=== PATIENT | female | born 1930 | race Caucasian/White ===

== ENCOUNTER 2016-07-19 10:13 | Emergency (ER) | payer MEDICARE ==
[~2016-07-19] VITALS: Ht 160 cm; Wt 66.3 kg
[~2016-07-19 10:13] MED LIST: ASPI325T PO; CIPR-9 PO; DILT120T PO; MULT-6 PO
[2016-07-19 10:30] VITALS: BP 175/90; PULSE 87; RESP 16; TEMP 98.8; O2SAT 98
--- NOTE | 2016-07-19 10:37 | PD ---
HPI Chief Complaint: palpitations Time Seen by Provider: 10:21 Travel History International Travel<30 days: No Contact w/Intl Traveler<30days: No Traveled to known affect area: No History of Present Illness HPI The patient was seen and examined in the presence of the nurse. This patient complains of palpitations. She has a sense that her heart is beating hard and sometimes skipping beats. She has no chest pain or discomfort. Duration is one day. She's been taking Sudafed for sinus congestion for 2 days. Symptoms severity is mild to moderate. No alleviating factors. PFSH Past Medical History Cancer: No Cardiovascular Problems: No Diabetes: No Diminished Hearing: No Endocrine: No Gastrointestinal Disorders: Yes (HAS TO BE GLUTEN FREE) Genitourinary: Yes (PROLAPSE BLADDER) Hepatitis: No Hiatal Hernia: No Hypertension: Yes Immune Disorder: No Musculoskeletal: Yes (ARTHRITIS) Neurologic: No Psychiatric: No Reproductive: Yes (PROLAPSE BLADDER) Respiratory: No Immunizations Current: Yes Thyroid Disease: No Menopausal: Yes Past Surgical History Hysterectomy: Yes (partial) Joint Replacement: Yes (BILATERAL HIPS) Oral Surgery: Yes (BROKEN NOSE REPAIR) Other Surgery: Yes Social History Alcohol Use: No Tobacco Use: No Substance Use: No Allergies-Medications (Allergen,Severity, Reaction): Coded Allergies: Lisinopril (Verified Allergy, Severe, Edema , Hives , 07/19/16) ANGIOEDEMA Hives - all over Gluten (Verified Allergy, Mild, Diarrhea, 07/19/16) INTERMEDIATE REACTION Penicillin (Verified Allergy, Mild, Hives, 07/19/16) Hives all over body Losartan (Verified Adverse Reaction, Intermediate, Joint Pain, 07/19/16) Reported Meds & Prescriptions Reported Meds & Active Scripts Active Diltiazem (Diltiazem HCl) 120 Mg Tab 120 Mg PO DIRECTED 1 tab po on Mon, Wed, Fri. Review of Systems General / Constitutional: No: Fever Eyes: No: Visual changes HENT: No: Headaches Cardiovascular: Positive: Palpitations, No: Chest Pain or Discomfort Respiratory: No: Shortness of Breath Gastrointestinal: No: Abdominal Pain Genitourinary: No: Dysuria Musculoskeletal: No: Pain Skin: No Rash Neurologic: No: Weakness Psychiatric: No: Depression Endocrine: No: Polydipsia Hematologic/Lymphatic: No: Easy Bruising Physical Exam Narrative GENERAL: Well-nourished, well-developed patient in no apparent distress. SKIN: Focused skin assessment reveals no rash and nodules. Skin is Warm and dry. HEAD: Atraumatic. Normocephalic. EYES: Pupils equal and round. No scleral icterus. No injection or drainage. ENT: No nasal bleeding or discharge. Mucous membranes pink and moist. NECK: Trachea midline. No JVD. CARDIOVASCULAR: Regular rate and rhythm. No murmur appreciated. Occasional ectopic beat noted, they are not frequent RESPIRATORY: No accessory muscle use. Clear to auscultation. Breath sounds equal bilaterally. GASTROINTESTINAL: Abdomen soft, non-tender, nondistended. Hepatic and splenic margins not palpable. MUSCULOSKELETAL: No obvious deformities. No clubbing. No cyanosis. No edema. NEUROLOGICAL: Awake and alert. No obvious cranial nerve deficits. Motor grossly within normal limits. Normal speech. PSYCHIATRIC: Appropriate mood and affect; insight and judgment normal. Data Data Last Documented VS Vital Signs Date Time Temp Pulse Resp B/P Pulse Ox O2 Delivery O2 Flow Rate FiO2 07/19/16 10:30 98.8 87 16 175/90 98 Orders Iv Access Insert/Monitor (07/19/16 10:26) Complete Blood Count With Diff (07/19/16 10:26) Basic Metabolic Panel (Bmp) (07/19/16 10:26) Electrocardiogram (07/19/16 ) Refrigeration Manager / Telemetry [email or web address] (07/19/16 10:26) Labs Laboratory Tests Test 07/19/16 10:43 White Blood Count 6.5 TH/MM3 Red Blood Count 4.24 MIL/MM3 Hemoglobin 12.4 GM/DL Hematocrit 37.1 % Mean Corpuscular Volume 87.5 FL Mean Corpuscular Hemoglobin 29.3 PG Mean Corpuscular Hemoglobin 33.5 % Concent Red Cell Distribution Width 13.1 % Platelet Count 164 TH/MM3 Mean Platelet Volume 9.1 FL Neutrophils (%) (Auto) 59.9 % Lymphocytes (%) (Auto) 28.8 % Monocytes (%) (Auto) 8.5 % Eosinophils (%) (Auto) 2.2 % Basophils (%) (Auto) 0.6 % Neutrophils # (Auto) 3.9 TH/MM3 Lymphocytes # (Auto) 1.9 TH/MM3 Monocytes # (Auto) 0.6 TH/MM3 Eosinophils # (Auto) 0.1 TH/MM3 Basophils # (Auto) 0.0 TH/MM3 CBC Comment DIFF FINAL Differential Comment Sodium Level 146 MEQ/L Potassium Level 3.9 MEQ/L Chloride Level 107 MEQ/L Carbon Dioxide Level 26.3 MEQ/L Anion Gap 13 MEQ/L Blood Urea Nitrogen 19 MG/DL Creatinine 0.69 MG/DL Estimat Glomerular Filtration 81 ML/MIN Rate Random Glucose 181 MG/DL Calcium Level 8.4 MG/DL MDM Medical Decision Making Medical Screen Exam Complete: Yes Emergency Medical Condition: Yes Medical Record Reviewed: Yes Differential Diagnosis PVCs, PACs, A. fib, SVT Narrative Course I have reviewed the patient's electronic medical record. Patient was here June 16, 2016 with urinary complaints. She has no history of cardiac disease IV placed CBC is normal Metabolic profile shows very minimal hypernatremia of 146 I reviewed her EKG which shows sinus rhythm but no ST elevation and one PVC Extended cardiac monitoring reveals sinus rhythm with occasional PVCs On recheck she is feeling fine and stable for outpatient follow-up She will call her doctor Thursday No indication for treatment of these infrequent PVCs Recommended she check and record her blood pressure daily and avoid Sudafed Diagnosis Primary Impression: Palpitations Additional Impressions: PVCs (premature ventricular contractions) Elevated blood pressure reading Additional Instructions: The patient was advised to follow up with their physician and return if they worsen. Check and record blood pressure daily Avoid Sudafed Med/Other Pt SpecificInfo: Other Disposition: 01 DISCHARGE HOME Condition: Stable Hector Middleton MD Jul 19, 2016 10:37
[2016-07-19 10:48] LABS: AUTOMATED NEUTROPHIL # 3.9 TH/MM3 (1.8-7.7); BASOPHIL % 0.6 % (0.0-2.0); EOSINOPHIL # 0.1 TH/MM3 (0-0.4); EOSINOPHIL % 2.2 % (0.0-4.0); HEMATOCRIT 37.1 % (35.0-46.0); HEMO FLAGS DIFF FINAL; LYMPH % 28.8 % (9.0-44.0); LYMPHOCYTE # 1.9 TH/MM3 (1.0-4.8); MEAN CELL VOLUME 87.5 FL (80.0-100.0); MEAN CORPUSCULAR HEMOGLOBIN 29.3 PG (27.0-34.0); MEAN CORPUSCULAR HGB CONC 33.5 % (32.0-36.0); MONO % 8.5 % (0.0-8.0); NEUT % 59.9 % (16.0-70.0); PLATELET COUNT 164 TH/MM3 (150-450); RED BLOOD COUNT 4.24 MIL/MM3 (4.00-5.30); RED CELL DISTRIBUTION WIDTH 13.1 % (11.6-17.2); WHITE BLOOD COUNT 6.5 TH/MM3 (4.0-11.0)
[2016-07-19 10:56] LABS: POTASSIUM 3.9 MEQ/L (3.5-5.1)
[2016-07-19 10:59] LABS: BICARBONATE 26.3 MEQ/L (21.0-32.0)
--- NOTE | 2016-07-19 18:55 | EKG ---
Date Performed: 07/19/2016 Time Performed: 10:14:26 PTAGE: 85 years EKG: Sinus rhythm with PVC(s). Leftward axis Lateral ST-T changes are nonspecific Borderline ECG PREVIOUS TRACING : 06/19/2014 09.49 Compared to prior tracing no significant change DOCTOR: Aliyah Carmichael Interpretating Date/Time 07/19/2016 18:53:45
[2016-07-21] MEDS ORDERED: DILT120T PO (11:39)
== END 2016-07-19 11:32 | disposition home or self-care (01) ==
LOC: PHED 10:13
DX: I49.3 Ventricular premature depolarization (principal)
CPT/HCPCS: 80048; 85025; 93005

== ENCOUNTER → 2016-07-28 | Outpatient (CLI) | payer MEDICARE ==
[~2016-07-28] MED LIST changes: -ASPI325T PO; -CIPR-9 PO; -MULT-6 PO
--- NOTE | 2016-07-29 16:03 | HM ---
Date Performed: 07/28/2016 Time Performed: 10:02:00 HOOKUP DATE: 07/28/16 10:02:00 AM Mon ANALYSIS START TIME: 07/28/2016 10:07:00 AM ANALYSIS END TIME: 07/29/2016 7:41:41 AM PATIENT AGE: 85 PATIENT HEIGHT PATIENT WEIGHT DRUG LIST PATIENT DIAGNOSIS: palpitations/fatigue TEST NARRATIVE: The patient's average heart rate was 72 BPM. Heart rates greater than 120 B PM were noted < 1% of the time. No episodes of bradycardia were noted. No pauses exceeding 2.0 s econds were noted. 1750 ventricular ectopics, which represented 2% of the total beat count, were noted. The highest ventricular ectopic frequency occurred from 10:00 AM to 11:00 AM Mon. During thi s time 207 VE(s) occurred. Ventricular ectopics were observed as 1748 isolated beat(s) and as 1 coup let(s). No runs were noted. Some of the ventricular beats occurred in bigeminal cycles. 4 supra ventricular ectopics, which represented < 1% of the total beat count, were noted. The highest suprav entricular ectopic frequency occurred from 10:00 AM to 11:00 AM Mon. During this time 1 SVE(s) occur red. No episodes of ST depression (defined as -1.0 mm or more) were noted in channel 1. No episo jay of ST depression (defined as -1.0 mm or more) were noted in channel 2. No episodes of ST depress ion (defined as -1.0 mm or more) were noted in channel 3. TEST INTERPRETATION: Minimum HR of 52 and Maximum HR of 121. Occasional PVCs and rare PACs, one couplet PVC seen. Conclusion: fairly benign holter monitor with PVCs, one couplet, and rare PACs Signed by : Carlotta Shaffer
== END ==
LOC: HCAV 09:42
PROVIDERS: ATTEND Family Medicine
DX: R00.2 Palpitations (principal); R53.83 Other fatigue
CPT/HCPCS: 93225; 93226

== ENCOUNTER → 2016-07-31 | Outpatient (CLI) | payer MEDICARE ==
[2016-07-31 14:16] LABS: ALT (GPT) 22 U/L (10-53); ANION GAP 7 MEQ/L (5-15); AST (GOT) 25 U/L (15-37); BICARBONATE 29.7 MEQ/L (21.0-32.0); BLOOD UREA NITROGEN 14 MG/DL (7-18); CHLORIDE 104 MEQ/L (98-107); GLOMERULAR FILTRATION RATE 99 ML/MIN (>89); GLUCOSE,FASTING 109 MG/DL (74-99); SODIUM (NA) 141 MEQ/L (136-145)
[2016-07-31 14:21] LABS: ALKALINE PHOSPHATASE 76 U/L (45-117); TOTAL BILIRUBIN ADULT 0.4 MG/DL (0.2-1.0)
== END ==
LOC: PLAB 11:11
PROVIDERS: ATTEND Family Medicine
DX: R00.2 Palpitations (principal); R53.83 Other fatigue
CPT/HCPCS: 36415; 80053; 84443

== ENCOUNTER → 2016-10-31 | Outpatient (CLI) | payer MEDICARE ==
[2016-10-31 11:54] LABS: HEMATOCRIT 39.4 % (35.0-46.0); MEAN CELL VOLUME 88.8 FL (80.0-100.0); MEAN CORPUSCULAR HEMOGLOBIN 30.2 PG (27.0-34.0); PLATELET COUNT 173 TH/MM3 (150-450); RED BLOOD COUNT 4.44 MIL/MM3 (4.00-5.30); REVIEW FLAG FINAL; WHITE BLOOD COUNT 6.7 TH/MM3 (4.0-11.0)
[2016-10-31 12:15] LABS: ANION GAP 6 MEQ/L (5-15); AST (GOT) 28 U/L (15-37); BICARBONATE 27.5 MEQ/L (21.0-32.0); BLOOD UREA NITROGEN 16 MG/DL (7-18); CHLORIDE 104 MEQ/L (98-107); GLOMERULAR FILTRATION RATE 99 ML/MIN (>89); GLUCOSE,FASTING 88 MG/DL (74-99); POTASSIUM 3.7 MEQ/L (3.5-5.1); SODIUM (NA) 137 MEQ/L (136-145)
[2016-10-31 12:16] LABS: ALT (GPT) 22 U/L (10-53)
[2016-10-31 12:18] LABS: ALKALINE PHOSPHATASE 77 U/L (45-117); TOTAL BILIRUBIN ADULT 0.7 MG/DL (0.2-1.0)
== END ==
LOC: PLAB 09:19
PROVIDERS: ATTEND Family Medicine
DX: R53.83 Other fatigue (principal); I10 Essential (primary) hypertension
CPT/HCPCS: 36415; 80053; 85027